=== PATIENT | male | born 1965 | race Two or more races ===

== ENCOUNTER 2024-03-28 11:36 | Emergency (ER) | payer BC ==
[~2024-03-28] VITALS: Ht 177.8 cm; Wt 80.0 kg
[2024-03-28 11:38] VITALS: TEMP 98.2; O2SAT 96
[2024-03-28 13:17] VITALS: PULSE 74
[2024-03-28] MEDS: IBUPROFEN 400MG TABLET PO ONE (13:17)
[2024-03-28] MEDS: METHOCARBAMOL 500MG TABLET PO ONE (13:17)
[2024-03-28 13:18] VITALS: BP 129/69; RESP 18
[2024-03-28] MEDS: LIDOCAINE 5% PATCH TOP SCH (13:18)
[2024-03-28] MEDS ORDERED: IBUP-2028 MT (14:25)
[2024-03-28] MEDS ORDERED: LIDO1ADH71 TOP (14:25)
== END 2024-03-28 15:12 | disposition home or self-care (01) ==
LOC: ER 11:36
DX: M54.9 Dorsalgia, unspecified (principal); V49.9XXA Car occupant (driver) (passenger) injured in unspecified traffic accident, initial encounter; Y93.89 Activity, other specified; Y92.89 Other specified places as the place of occurrence of the external cause; Y99.8 Other external cause status
CPT/HCPCS: 99283